=== PATIENT | male | born 1945 | race African-American/Black ===

== ENCOUNTER 2016-10-13 09:12 | Day surgery (SDC) | payer OTHER ==
[2016-10-13] MEDS ORDERED: NS 500 ML IV 500 ML IV ONE (09:38)
[2016-10-13] MEDS ORDERED: TETRACAINE 0.5% OPHTH 1 DOSE AFFEYE ONE ×4 (09:43→13:27)
[2016-10-13] MEDS ORDERED: VIGAMOX 0.5% OPHTH 1 DOSE AFFEYE ONE ×5 (09:45→13:39)
[2016-10-13] MEDS ORDERED: PROLENSA OPHTH 1 DOSE AFFEYE ONE (09:56)
[2016-10-13] MEDS ORDERED: CYCLOGYL 1% OPHTH 1 DOSE OP ONE ×2 (09:58→09:59)
[2016-10-13] MEDS ORDERED: AK-DILATE 2.5% OPHTH 1 DOSE OP ONE ×2 (09:58→09:59)
[2016-10-13] MEDS ORDERED: ALPHAGAN-P OPHTH 1 DOSE AFFEYE ONE (09:58)
[2016-10-13] MEDS ORDERED: MYDRIACIL OPHTH 1 DOSE AFFEYE ONE ×2 (09:58→09:59)
[2016-10-13] MEDS ORDERED: BETADINE OPHTH SOLN 5% EACHEYE ONE (13:15)
[2016-10-13] MEDS ORDERED: DUOVISC IO ONE ×2 (13:26→13:27)
[2016-10-13] MEDS ORDERED: XYLOCAINE-MPF 1% IJ ONE ×2 (13:26→13:27)
[2016-10-13] MEDS ORDERED: ADRENALINE CHL INJ IJ ONE ×2 (13:26→13:27)
[2016-10-13] MEDS ORDERED: BSS OPHTH (PLAIN) 500 ML with VANCOMYCIN HCL 500 MG VIAL 25 MG, ADRENALINE CHL INJ 1 MG IR ONE ×6 (13:27)
[2016-10-13 14:51] VITALS: BP 140/81
== END 2016-10-13 14:05 | disposition home or self-care (01) ==
LOC: SURG1 09:12
PROVIDERS: ATTEND Ophthalmology
PROC: 08DK3ZZ Extraction of Left Lens, Percutaneous Approach (ICD-10-PCS; principal; 2016-10-13 17:30)
PROC: 08RK3JZ Replacement of Left Lens with Synthetic Substitute, Percutaneous Approach (ICD-10-PCS; principal; 2016-10-13 17:30)
DX: H25.12 Age-related nuclear cataract, left eye (principal); H25.012 Cortical age-related cataract, left eye
CPT/HCPCS: 99100; A4217; J0170; J3370

== ENCOUNTER 2016-10-27 06:36 | Day surgery (SDC) | payer OTHER ==
[2016-10-27] MEDS ORDERED: NS 500 ML IV 500 ML IV ONE (07:22)
[2016-10-27] MEDS ORDERED: TETRACAINE 0.5% OPHTH 1 DOSE AFFEYE ONE ×5 (07:30→10:05)
[2016-10-27] MEDS ORDERED: VIGAMOX 0.5% OPHTH 1 DOSE AFFEYE ONE ×5 (07:35→10:19)
[2016-10-27] MEDS ORDERED: PROLENSA OPHTH 1 DOSE AFFEYE ONE (07:46)
[2016-10-27] MEDS ORDERED: ALPHAGAN-P OPHTH 1 DOSE AFFEYE ONE (07:50)
[2016-10-27] MEDS ORDERED: AK-DILATE 2.5% OPHTH 1 DOSE OP ONE ×3 (07:52→08:00)
[2016-10-27] MEDS ORDERED: MYDRIACIL OPHTH 1 DOSE AFFEYE ONE ×3 (07:52→08:00)
[2016-10-27] MEDS ORDERED: CYCLOGYL 1% OPHTH 1 DOSE OP ONE ×3 (07:52→08:00)
[2016-10-27] MEDS ORDERED: BETADINE OPHTH SOLN 5% EACHEYE ONE ×2 (08:55→09:55)
[2016-10-27] MEDS ORDERED: XYLOCAINE-MPF 1% IJ ONE ×2 (10:01→10:05)
[2016-10-27] MEDS ORDERED: ADRENALINE CHL INJ IJ ONE ×2 (10:01→10:05)
[2016-10-27] MEDS ORDERED: DUOVISC IO ONE ×2 (10:01→10:05)
[2016-10-27] MEDS ORDERED: BSS OPHTH (PLAIN) 500 ML with VANCOMYCIN HCL 500 MG VIAL 25 MG, ADRENALINE CHL INJ 1 MG IR ONE ×6 (10:02)
[2016-10-27 11:32] VITALS: BP 132/81
== END 2016-10-27 10:45 | disposition home or self-care (01) ==
LOC: SURG1 06:36
PROVIDERS: ATTEND Ophthalmology
PROC: 08DJ3ZZ Extraction of Right Lens, Percutaneous Approach (ICD-10-PCS; principal; 2016-10-27 11:15)
PROC: 08RJ3JZ Replacement of Right Lens with Synthetic Substitute, Percutaneous Approach (ICD-10-PCS; principal; 2016-10-27 11:15)
DX: H25.11 Age-related nuclear cataract, right eye (principal); H25.011 Cortical age-related cataract, right eye
CPT/HCPCS: 99100; A4217; J0170; J3370